=== PATIENT | female | born 1950 | race Caucasian/White ===

== ENCOUNTER 2016-04-18 01:13 | Observation (INO) | payer BC, MEDICARE ==
[2016-04-18 01:29] VITALS: RESP 18
[2016-04-18] MEDS ORDERED: NITROGLYCERIN OINT 1 INCH/GM PACKET TOPICAL STA (01:45)
[2016-04-18] MEDS ORDERED: ASPIRIN 81 MG CHEW PO STA (01:45)
--- NOTE | 2016-04-18 01:47 | ED ---
General Adult HPI - General Chief complaint: Chest Pain Stated complaint: Chest Tightness Time Seen by Provider: 04/18/16 01:40 Source: patient, RN notes reviewed Mode of arrival: ambulatory Limitations: no limitations - History of Present Illness Initial comments: Patient is a pleasant 65-year-old female presenting to emergency departments chest discomfort. Discomfort feels like heaviness. Discomfort has been somewhat progressive over the past month. Discomfort is exertional and usually improves with rest. Symptoms are mild at this time, rated 3/10. Patient does have some associated dyspnea. No nausea or diaphoresis. No history of similar symptoms prior to the past month. - Related Data Home Medications Medication Instructions Recorded Confirmed Venlafaxine HCl 225 mg PO HS 04/18/16 04/18/16 amLODIPine BESYLATE/BENAZEPRIL 1 cap PO DAILY 04/18/16 04/18/16 [amLODIPine BESYLATE/BENAZEPRIL 10-20 mg] lamoTRIgine [LaMICtal] 100 mg PO BID 04/18/16 04/18/16 traZODone HCL 100 mg PO HS 04/18/16 04/18/16 Allergies Allergy/AdvReac Type Severity Reaction Status Date / Time cat dander Allergy Unknown Verified 04/18/16 01:29 codeine Allergy Unknown Verified 04/18/16 01:29 iodine Allergy Unknown Verified 04/18/16 01:29 Review of Systems ROS Statement: Those systems with pertinent positive or pertinent negative responses have been documented in the HPI. ROS Other: All systems not noted in ROS Statement are negative. Constitutional: Denies: fever Eyes: Denies: eye pain ENT: Denies: ear pain Respiratory: Reports: dyspnea. Denies: cough Cardiovascular: Reports: chest pain Endocrine: Denies: fatigue Gastrointestinal: Denies: abdominal pain Genitourinary: Denies: dysuria Musculoskeletal: Denies: arthralgia Skin: Denies: rash Neurological: Denies: weakness Past Medical History Past Medical History: Hypertension Additional Past Medical History / Comment(s): Leprosy History of Any Multi-Drug Resistant Organisms: None Reported Past Surgical History: Section, Cholecystectomy Past Psychological History: Depression Smoking Status: Never smoker Past Alcohol Use History: None Reported Past Drug Use History: None Reported General Exam Limitations: no limitations General appearance: alert, in no apparent distress Head exam: Present: atraumatic Eye exam: Present: normal appearance, PERRL ENT exam: Present: normal oropharynx Neck exam: Present: normal inspection Respiratory exam: Present: normal lung sounds bilaterally Cardiovascular Exam: Present: regular rate, normal rhythm Expanded Peripheral pulses: 2+: Radial (R), Radial (L), Dorsalis Pedis (R), Dorsalis Pedis (L) GI/Abdominal exam: Present: soft. Absent: tenderness Extremities exam: Present: normal inspection. Absent: pedal edema, calf tenderness Neurological exam: Present: alert Psychiatric exam: Present: normal affect, normal mood Skin exam: Absent: rash Course Vital Signs 04/18/16 04/18/16 01:24 02:20 Temperature 97.5 F L Pulse Rate 80 66 Respiratory 18 18 Rate Blood Pressure 177/109 131/83 O2 Sat by Pulse 97 95 Oximetry - Reevaluation(s) Reevaluation #1: 04/18/16 01:46 Recheck blood pressure 168/80 EKG Findings - EKG Comments: EKG Findings:: Normal sinus rhythm 74. Normal intervals. Normal axis. Normal QRS. Normal ST-T. Medical Decision Making - Medical Decision Making Patient reexamined and symptom-free. Patient symptoms have resolved with nitroglycerin. Patient updated on results and plan. Case was discussed in detail with Dr. Moe, who will admit for Dr. Lynch. Admission orders written. Cardiology consult placed. IV heparin started. - Lab Data Result diagrams: 04/18/16 01:27 04/18/16 01:27 Lab Results 04/18/16 04/18/16 04/18/16 Range/Units 01:27 01:27 01:27 WBC 9.6 (3.8-10.6) k/uL RBC 4.80 (3.80-5.40) m/uL Hgb 13.9 (11.4-16.0) gm/dL Hct 43.6 (34.0-46.0) % MCV 90.9 (80.0-100.0) fL MCH 29.0 (25.0-35.0) pg MCHC 32.0 (31.0-37.0) g/dL RDW 13.2 (11.5-15.5) % Plt Count 318 (150-450) k/uL Neutrophils % 57 % Lymphocytes % 29 % Monocytes % 6 % Eosinophils % 5 % Basophils % 2 % Neutrophils # 5.5 (1.3-7.7) k/uL Lymphocytes # 2.8 (1.0-4.8) k/uL Monocytes # 0.6 (0-1.0) k/uL Eosinophils # 0.4 (0-0.7) k/uL Basophils # 0.2 (0-0.2) k/uL PT (9.0-12.0) sec INR (<1.1) APTT (22.0-30.0) sec Sodium 143 (137-145) mmol/L Potassium 4.3 (3.5-5.1) mmol/L Chloride 104 (98-107) mmol/L Carbon Dioxide 26 (22-30) mmol/L Anion Gap 13 mmol/L BUN 16 (7-17) mg/dL Creatinine 0.80 (0.52-1.04) mg/dL Est GFR (MDRD) Af Amer >60 (>60 ml/min/1.73 sqM) Est GFR (MDRD) Non-Af >60 (>60 ml/min/1.73 sqM) Glucose 97 (74-99) mg/dL Calcium 9.6 (8.4-10.2) mg/dL Magnesium 2.1 (1.6-2.3) mg/dL Total Bilirubin 0.3 (0.2-1.3) mg/dL AST 21 (14-36) U/L ALT 35 (9-52) U/L Alkaline Phosphatase 75 (38-126) U/L Total Creatine Kinase 104 (30-135) U/L CK-MB (CK-2) 1.2 (0.0-2.4) ng/mL CK-MB (CK-2) Rel Index 1.2 Troponin I <0.012 (0.000-0.034) ng/mL Total Protein 7.2 (6.3-8.2) g/dL Albumin 4.3 (3.5-5.0) g/dL 04/18/16 Range/Units 01:27 WBC (3.8-10.6) k/uL RBC (3.80-5.40) m/uL Hgb (11.4-16.0) gm/dL Hct (34.0-46.0) % MCV (80.0-100.0) fL MCH (25.0-35.0) pg MCHC (31.0-37.0) g/dL RDW (11.5-15.5) % Plt Count (150-450) k/uL Neutrophils % % Lymphocytes % % Monocytes % % Eosinophils % % Basophils % % Neutrophils # (1.3-7.7) k/uL Lymphocytes # (1.0-4.8) k/uL Monocytes # (0-1.0) k/uL Eosinophils # (0-0.7) k/uL Basophils # (0-0.2) k/uL PT 10.2 (9.0-12.0) sec INR 1.0 (<1.1) APTT 23.6 (22.0-30.0) sec Sodium (137-145) mmol/L Potassium (3.5-5.1) mmol/L Chloride (98-107) mmol/L Carbon Dioxide (22-30) mmol/L Anion Gap mmol/L BUN (7-17) mg/dL Creatinine (0.52-1.04) mg/dL Est GFR (MDRD) Af Amer (>60 ml/min/1.73 sqM) Est GFR (MDRD) Non-Af (>60 ml/min/1.73 sqM) Glucose (74-99) mg/dL Calcium (8.4-10.2) mg/dL Magnesium (1.6-2.3) mg/dL Total Bilirubin (0.2-1.3) mg/dL AST (14-36) U/L ALT (9-52) U/L Alkaline Phosphatase (38-126) U/L Total Creatine Kinase (30-135) U/L CK-MB (CK-2) (0.0-2.4) ng/mL CK-MB (CK-2) Rel Index Troponin I (0.000-0.034) ng/mL Total Protein (6.3-8.2) g/dL Albumin (3.5-5.0) g/dL - Radiology Data Radiology results: image reviewed (Chest x-ray shows no acute process.) Critical Care Time Critical Care Time: Yes Total Critical Care Time: 33 Disposition Clinical Impression: Unstable angina pectoris Disposition: ADMITTED IP TO THIS HOSP
[2016-04-18 02:28] LABS: Basophils # (A) 0.2 k/uL (0-0.2); Basophils % (A) 2 %; CH 29.8; CHCM 32.9; Eosinophils # (A) 0.4 k/uL (0-0.7); Eosinophils % (A) 5 %; HCT 43.6 % (34.0-46.0); HDW 2.49; HGB 13.9 gm/dL (11.4-16.0); Luc # (Auto) 0.18; Luc % (Auto) 2; Lymphocytes # (A) 2.8 k/uL (1.0-4.8); Lymphocytes % (A) 29 %; MCV 90.9 fL (80.0-100.0); Mean Platelet Volume 7.2; Monocytes # (A) 0.6 k/uL (0-1.0); Monocytes % (A) 6 %; Neutrophils # (A) 5.5 k/uL (1.3-7.7); Neutrophils % (A) 57 %; RDW 13.2 % (11.5-15.5); WBC 9.6 k/uL (3.8-10.6); WBC (Perox) 9.57
[2016-04-18 02:45] LABS: ALT 35 U/L (9-52); AST 21 U/L (14-36); Alkaline Phosphatase 75 U/L (38-126); Anion Gap 13 mmol/L; Blood Urea Nitrogen 16 mg/dL (7-17); Calcium 9.6 mg/dL (8.4-10.2); Carbon Dioxide 26 mmol/L (22-30); Chloride 104 mmol/L (98-107); Glucose 97 mg/dL (74-99); Magnesium 2.1 mg/dL (1.6-2.3); Non-African American GFR(MDRD) >60 (>60 ml/min/1.73 sqM); Potassium 4.3 mmol/L (3.5-5.1); Sodium 143 mmol/L (137-145); Total Bilirubin 0.3 mg/dL (0.2-1.3); Total Protein 7.2 g/dL (6.3-8.2)
--- NOTE | 2016-04-18 02:52 | XR ---
EXAMINATION TYPE: XR chest 2V DATE OF EXAM: 04/18/2016 2:34 AM COMPARISON: NONE HISTORY: Chest pain for one month TECHNIQUE: Frontal and lateral views of the chest are obtained. FINDINGS: There is no heart failure nor confluent pneumonic infiltrate. There are no hilar masses. C ostophrenic angles are clear. There are chest leads. Bony thorax is intact. IMPRESSION: No active cardiopulmonary disease.
[2016-04-18 02:53] LABS: Partial Thromboplastin Time 23.6 sec (22.0-30.0); Prothrombin Time 10.2 sec (9.0-12.0)
[2016-04-18 02:54] LABS: Creatine Kinase 104 U/L (30-135)
[2016-04-18 03:06] LABS: Creatine Kinase MB 1.2 ng/mL (0.0-2.4); Troponin I <0.012 ng/mL (0.000-0.034)
[2016-04-18] MEDS ORDERED: NITROGLYCERIN SL TABS 0.4 MG TAB SUBLINGUAL PRN (03:34)
[2016-04-18] MEDS ORDERED: HEPARIN SODIUM,PORCINE 5,000 UNIT/ML 1 ML VIAL IV PRN (03:34)
[2016-04-18] MEDS ORDERED: HEPARIN SODIUM,PORCINE 5,000 UNIT/ML 1 ML VIAL IV ONE (03:34)
[2016-04-18] MEDS ORDERED: HEPARIN SODIUM,PORCINE/D5W PMX 25,000 UNIT in DEXTROSE/WATER 1 500ML.BAG IV SCH (03:45)
[2016-04-18] MEDS ORDERED: ACETAMINOPHEN TAB 325 MG TAB PO STA (03:50)
[2016-04-18 04:43] VITALS: BMI 36.6
[2016-04-18 07:10] LABS: Creatine Kinase 87 U/L (30-135)
[2016-04-18 07:22] LABS: Creatine Kinase MB 1.2 ng/mL (0.0-2.4); Troponin I <0.012 ng/mL (0.000-0.034)
[2016-04-18] MEDS ORDERED: ACETAMINOPHEN TAB 325 MG TAB PO PRN (07:35)
[2016-04-18] MEDS: NITROGLYCERIN OINT 1 INCH/GM PACKET TOPICAL SCH ×2 (08:21→14:05)
[2016-04-18] MEDS ORDERED: LISINOPRIL 20 MG TAB PO SCH (09:00)
[2016-04-18] MEDS ORDERED: lamoTRIgine 100 MG TAB PO SCH (09:00)
[2016-04-18] MEDS ORDERED: amLODIPine 10 MG TAB PO SCH (09:00)
--- NOTE | 2016-04-18 09:17 | P.CRDCN ---
History of Present Illness Consult date: 04/18/16 Chief complaint: Chest pain History of present illness: This is a pleasant 65-year-old female patient with a past medical history significant for hypertension and dyslipidemia and mild obesity presented to the emergency room complaining of chest discomfort. She describes a one-week history of intermittent chest discomfort, as a pressure across the chest, without any radiation to the arm or neck or shoulder and without any associated symptoms of shortness of breath, sweating, dizziness or lightheadedness. The EKG showed sinus rhythm without any significant ST or T-wave abnormalities. The cardiac enzymes came in to be unremarkable. The patient's symptoms seems to be consistent with possible angina in view of the exertional nature of it. I recommended proceeding with heart catheterization but the patient would like to proceed with a stress test. Past Medical History Past Medical History: Hypertension Additional Past Medical History / Comment(s): Leprosy History of Any Multi-Drug Resistant Organisms: MRSA Date of last positivie culture/infection: 2012 MDRO Source:: Neck Past Surgical History: Section, Cholecystectomy Additional Past Surgical History / Comment(s): Tube in left ear Past Anesthesia/Blood Transfusion Reactions: No Reported Reaction Past Psychological History: Depression Smoking Status: Former smoker Past Alcohol Use History: None Reported Past Drug Use History: None Reported - Past Family History Mother Family Medical History: Cancer Additional Family Medical History / Comment(s): Pancreatic CA Father Additional Family Medical History / Comment(s): heart disease-aorta Medications and Allergies Home Medications Medication Instructions Recorded Confirmed Type Aspirin EC [Ecotrin Low Dose] 81 mg PO HS 04/18/16 04/18/16 History Ibuprofen [Motrin] 800 mg PO Q6HR PRN 04/18/16 04/18/16 History Venlafaxine HCl 225 mg PO HS 04/18/16 04/18/16 History amLODIPine BESYLATE/BENAZEPRIL 1 cap PO HS 04/18/16 04/18/16 History [amLODIPine BESYLATE/BENAZEPRIL 10-20 mg] lamoTRIgine [LaMICtal] 100 mg PO BID 04/18/16 04/18/16 History traZODone HCL 100 mg PO HS 04/18/16 04/18/16 History Allergies Allergy/AdvReac Type Severity Reaction Status Date / Time cat dander Allergy Itching Verified 04/18/16 07:59 codeine Allergy Nausea Verified 04/18/16 07:59 iodine Allergy Anaphylaxis Verified 04/18/16 07:59 Physical Exam Vitals: Vital Signs Temp Pulse Pulse Resp BP BP Pulse Ox 04/18/16 08:00 71 18 04/18/16 07:57 97.8 F 71 18 115/60 92 L 04/18/16 04:45 18 04/18/16 04:12 96.9 F L 63 18 126/61 98 04/18/16 04:00 97.7 F 66 16 150/80 95 Intake and Output 04/17/16 04/18/16 04/18/16 22:59 06:59 14:59 Other: # Voids 1 Weight 90.7 kg - Constitutional General appearance: no acute distress - Respiratory Respiratory: bilateral: CTA - Cardiovascular Rhythm: regular Heart sounds: normal: S1, S2 Abnormal Heart Sounds: systolic murmur Results 04/18/16 01:27 04/18/16 01:27 Cardiac Enzymes 04/18/16 Range/Units 06:32 CK-MB (CK-2) 1.2 (0.0-2.4) ng/mL Troponin I <0.012 (0.000-0.034) ng/mL Current Medications Generic Name Dose Route Start Last Admin Trade Name Freq PRN Reason Stop Dose Admin Acetaminophen 650 mg 04/18/16 07:35 Tylenol Tab PO Q6HR PRN Fever and/ or Mild Pain Amlodipine Besylate 10 mg 04/18/16 09:00 Norvasc PO DAILY [facility] Aspirin 325 mg 04/19/16 09:00 Aspirin PO DAILY [facility] Heparin Sodium (Porcine) 0 unit 04/18/16 03:34 Heparin IV Q6HR PRN Low PTT Protocol Heparin Sodium/Dextrose 25,000 500 mls @ 20.13 mls/hr 04/18/16 03:45 04:08 unit/ IV Solution IV 11.1 units/kg/hr .Q24H ESTEE 20.13 mls/hr Protocol Administration 11.1 UNITS/KG/HR Lamotrigine 100 mg 04/18/16 09:00 Lamictal PO BID [facility] Lisinopril 20 mg 04/18/16 09:00 Zestril PO DAILY [facility] Nitroglycerin 1 inch 04/18/16 07:00 04/18/16 08:21 Nitro-Bid Oint TOPICAL Not Given Q6HR ESTEE Nitroglycerin 0.4 mg 04/18/16 03:34 Nitrostat SUBLINGUAL Q5M PRN Chest Pain Sodium Chloride 10 ml 04/18/16 09:00 Saline Flush IV BID ESTEE Trazodone HCl 100 mg 04/18/16 21:00 Desyrel PO HS ESTEE Venlafaxine HCl 225 mg 04/18/16 21:00 Effexor Xr PO HS ESTEE Intake and Output 04/17/16 04/18/16 04/18/16 22:59 06:59 14:59 Other: # Voids 1 Weight 90.7 kg Assessment and Plan Plan: Assessment #1 chest discomfort #2 hypertension #3 dyslipidemia Plan #1 the patient was ruled out for acute coronary event #2 I will scheduled the patient to undergo a stress test.
--- NOTE | 2016-04-18 12:28 | EST ---
DATE OF SERVICE: 04/18/2016 AGE: 65Y SEX: F HT: 5'2" WT: 200 lbs. Protocol Erwin: X Other: Cardiolite Stage: II Dur. of Exercise: 6 minutes *Heart Rate Blood Pressure *Rest: 65 Rest: 139/62 * *Max. Achieved: 130 Maximum BP: 205/70 85% PMHR: 131 100% PMHR: 154 *METS: 7.3 INDICATIONS: Chest pain. MEDICATIONS: CLINICAL INFORMATION: History of chest pain, hypertension, shortness of breath, hypercholesterolemia, family history of coronary artery disease, history of angina, quit smoking in 1974. She smoked for about 5 years. History of asthma. Resting ECG shows sinus rhythm 65 beats per minute, ID interval of 0.16, QRS 0.08, normal ST-T waves. Utilizing a standard Erwin protocol, a symptom-limited treadmill test was performed. Patient exercised for total of 6 minutes, attained a peak heart rate performed in 130 beats per minute, which is approximately 84% predicted maximum heart rate without any chest pain or pressure or ST segment deviations indicative of ischemia. IMPRESSION: 1. Baseline rhythm is sinus with normal ID interval, normal QRS, normal ST-T waves. 2. Negative stress Cardiolite study at 84% predicted maximum heart rate. 3. Nuclear scintigrams to follow from radiology department.
[2016-04-18 12:45] VITALS: BP 165/85; PULSE 82; TEMP 97.9
[2016-04-18 14:02] LABS: Creatine Kinase 90 U/L (30-135)
--- NOTE | 2016-04-18 14:12 | NM ---
EXAMINATION TYPE: NM stress cardiolite complete DATE OF EXAM: 04/18/2016 12:38 PM COMPARISON: Chest x-ray 18 April 2016 HISTORY: Chest pain TECHNIQUE: After the intravenous administration of 11 mCi Tc 99m Sestamibi - Rest images obtained 50 minutes post injection. The patient exercised using a DAV protocol and 1 minute prior to peak ex ercise was injected with 26.8 mCi Tc 99m Sestamibi - Stress images obtained 15 minutes post injection . FINDINGS: Targeted heart rate was not achieved during performance of the study, patient achieved 83% of predict ed maximal heart rate. Review of stress and rest SPECT images demonstrates no distinct perfusion abno rmality. Gated analysis shows normal wall motion with an estimated left ventricular ejection fractio n of 85 %. IMPRESSION: No scintigraphic evidence for reversible ischemia. Suboptimal stress. Elevated ejection fraction, con director insurance echocardiographic correlation.
[2016-04-18 14:14] LABS: Creatine Kinase MB 1.1 ng/mL (0.0-2.4); Troponin I <0.012 ng/mL (0.000-0.034)
--- NOTE | 2016-04-18 15:31 | P.HPIM ---
History of Present Illness H&P Date: 04/18/16 Chief Complaint: Chest pain This is a medical H&P and discharge summary combined: Patient is a 65-year-old female, patient of Dr. Lynch in the outpatient setting with medical history significant for hypertension, leprosy, MRSA of the neck in 2012, depression, and former nicotine dependence. Patient presented to the emergency department with complaints of chest discomfort for approximately one month described as heaviness with associated dyspnea.. Chest discomfort worsens with activity and improves with rest. No history of nausea or diaphoresis. EKG in the emergency department showed normal sinus rhythm with no ST-T abnormality. Chest x-ray negative for any acute cardiopulmonary process. Troponins negative 3. Patient was seen and evaluated by cardiology who recommended a heart catheterization which patient declined. Patient underwent a Cardiolite stress test which was negative. Patient had no further episodes of chest pain during her hospital stay and was deemed stable from a medical standpoint for discharge to home with follow-up in the outpatient setting. Past Medical History Past Medical History: Hypertension Additional Past Medical History / Comment(s): Leprosy History of Any Multi-Drug Resistant Organisms: MRSA Date of last positivie culture/infection: 2012 MDRO Source:: Neck Past Surgical History: Section, Cholecystectomy Additional Past Surgical History / Comment(s): Tube in left ear Past Anesthesia/Blood Transfusion Reactions: No Reported Reaction Past Psychological History: Depression Smoking Status: Former smoker Past Alcohol Use History: None Reported Past Drug Use History: None Reported - Past Family History Mother Family Medical History: Cancer Additional Family Medical History / Comment(s): Pancreatic CA Father Additional Family Medical History / Comment(s): heart disease-aorta Medications and Allergies Home Medications Medication Instructions Recorded Confirmed Type Aspirin EC [Ecotrin Low Dose] 81 mg PO HS 04/18/16 04/18/16 History Ibuprofen [Motrin] 800 mg PO Q6HR PRN 04/18/16 04/18/16 History Venlafaxine HCl 225 mg PO HS 04/18/16 04/18/16 History amLODIPine BESYLATE/BENAZEPRIL 1 cap PO HS 04/18/16 04/18/16 History [amLODIPine BESYLATE/BENAZEPRIL 10-20 mg] lamoTRIgine [LaMICtal] 100 mg PO BID 04/18/16 04/18/16 History traZODone HCL 100 mg PO HS 04/18/16 04/18/16 History Allergies Allergy/AdvReac Type Severity Reaction Status Date / Time cat dander Allergy Itching Verified 04/18/16 07:59 codeine Allergy Nausea Verified 04/18/16 07:59 iodine Allergy Anaphylaxis Verified 04/18/16 07:59 Physical Exam Vitals: Vital Signs Temp Pulse Pulse Resp BP BP Pulse Ox 04/18/16 12:00 97.9 F 82 18 165/85 93 L 04/18/16 08:00 71 18 04/18/16 07:57 97.8 F 71 18 115/60 92 L 04/18/16 04:45 18 04/18/16 04:12 96.9 F L 63 18 126/61 98 04/18/16 04:00 97.7 F 66 16 150/80 95 Intake and Output 04/18/16 04/18/16 04/18/16 06:59 14:59 22:59 Other: # Voids 1 2 Weight 90.7 kg GENERAL: Pt awake and alert, well-appearing, well-nourished, and in no acute distress. HEAD: Atraumatic, normocephalic. EYES: Pupils equal and round. ENT: Moist mucous membranes. NECK:Supple without lymphadenopathy or JVD. LUNGS: Breath sounds clear to auscultation bilaterally. No wheezes, rales, or rhonchi. HEART: Heart S1, S2, no S3 or S4. Regular rate and rhythm. No murmurs, rubs or gallops. ABDOMEN: Soft, morbidly obese, nontender, nondistended, normoactive bowel sounds. EXTREMITIES: 2+ peripheral pulses. No edema. No calf tenderness. NEUROLOGICAL: Pt oriented x 3. Cranial nerves II through XII grossly intact. Strength and sensation grossly intact. PSYCH: Normal mood, normal affect. SKIN: Warm, dry, intact. Normal turgor. No rashes or lesions. Results CBC & Chem 7: 04/18/16 01:27 04/18/16 01:27 Chest x-ray: report reviewed Thrombosis Risk Factor Assmnt - Choose All That Apply Each Risk Factor Represents 2 Points: Age 61-74 years Thrombosis Risk Factor Assessment Total Risk Factor Score: 2 Thrombosis Risk Factor Assessment Level: Low Risk Assessment and Plan Plan: Impression and plan and discharge diagnoses: 1. Atypical chest pain, stress test negative. 2. Hypertension. 3. Dyslipidemia. 4. History of leprosy. 5. Depression, stable. 6. History of nicotine dependence. The above impression and plan have been discussed and directed by Dr. Kennedy. Katya GUEVARA acting as scribe for Dr. Kennedy.
[2016-04-18] MEDS ORDERED: VENLAFAXINE HCL ER 75 MG CAP PO SCH (21:00)
[2016-04-18] MEDS ORDERED: traZODone HCL 50 MG TAB PO SCH (21:00)
[2016-04-19] MEDS ORDERED: ASPIRIN 325 MG TAB PO SCH (09:00)
== END 2016-04-18 15:40 | disposition home or self-care (01) ==
LOC: EC 01:13 → 3OBS 03:34
PROVIDERS: ADMIT Family Medicine; ATTEND Family Medicine
DX: R07.89 Other chest pain (principal); I10 Essential (primary) hypertension; F32.9 Major depressive disorder, single episode, unspecified; Z87.891 Personal history of nicotine dependence; Z79.899 Other long term (current) drug therapy; Z88.5 Allergy status to narcotic agent; Z88.8 Allergy status to other drugs, medicaments and biological substances
CPT/HCPCS: 36415; 93005; 93017; 80053; 82550; 82553; 83735; 84484; 85025; 85610; 85730; 71020; 78452; 96376; 99291; G0378; A9500; J1644 ×2; 96366

== ENCOUNTER → 2018-02-02 | Outpatient (CLI) | payer MEDICARE ==
--- NOTE | 2018-02-04 11:25 | MM ---
Reason for exam: screening (asymptomatic). Last mammogram was performed 9 years and 4 months ago. History: Patient is postmenopausal and had first child at age 31. Family history of breast cancer in cousin at age 65. Physical Findings: A clinical breast exam by your physician is recommended on an annual basis and results should be correlated with mammographic findings. MG 3D Screening Mammo W/Cad Bilateral CC and MLO view(s) were taken. Prior study comparison: September 21, 2008, bilateral digital screening mammogram. There are scattered fibroglandular densities. Nodule upper outer left breast 6.9cm from nipple. This finding is changed when compared with previous exams. ASSESSMENT: Incomplete: need additional imaging evaluation, BI-RAD 0 RECOMMENDATION: Special view mammogram of the left breast. If lesion persists on supplemental views, image directed ultrasound is recommended. [facility] will attempt to contact patient to return for supplemental views and ultrasound if indicated.
== END | disposition home or self-care (01) ==
LOC: RADMAMWWP 15:08
PROVIDERS: ATTEND Family Medicine
DX: Z12.31 Encounter for screening mammogram for malignant neoplasm of breast (principal)
CPT/HCPCS: 77063; 77067

== ENCOUNTER → 2018-02-08 | Outpatient (CLI) | payer MEDICARE ==
--- NOTE | 2018-02-19 13:35 | MM ---
Reason for exam: additional evaluation requested from abnormal screening. Last mammogram was performed less than 1 month ago. History: Patient is postmenopausal and had first child at age 31. Family history of breast cancer in cousin at age 65. Physical Findings: Nurse did not find any significant physical abnormalities on exam. MG 3D Work Up W/Cad LT Spot compression CC, spot compression MLO, and ML view(s) were taken of the left breast. Prior study comparison: February 02, 2018, bilateral MG 3d screening mammo w/cad. February 03, 2013, mammogram. September 21, 2008, bilateral digital screening mammogram. There are scattered fibroglandular densities. Finding: There is a 6 mm circumscribed lobulated mass located 6-7 cm from the nipple in the 12 o'clock upper quadrant, middle position of the left breast. New finding since February 03, 2013 and February 02, 2018. These results were verbally communicated with the patient and result sheet given to the patient on 02/19/18. ASSESSMENT: Incomplete: need additional imaging evaluation, BI-RAD 0 RECOMMENDATION: Ultrasound of the left breast.
--- NOTE | 2018-02-19 13:37 | USB ---
Reason for exam: additional evaluation requested from abnormal screening. History: Patient is postmenopausal and had first child at age 31. Family history of breast cancer in cousin at age 65. US Breast Workup Limited LT Left limited breast ultrasound including focal area of concern, retroareolar and axilla demonstrates a 4 x 3 x 4mm oval, hypoechoic lesion at 3 o'clock. These results were verbally communicated with the patient and result sheet given to the patient on 02/19/18. ASSESSMENT: Suspicious, BI-RAD 4 RECOMMENDATION: Stereotactic core biopsy of the left breast. (mammographic lesion 12 o'clock does not correlate with ultrasound) Called Dr. Lynch with mammographic findings and has scheduled an appointment for the patient for 03/18/18 at 9:[address] Sterling. Biopsy scheduled for 03/05/18 at 10:20. PRELIMINARY REPORT CALLED AND FAXED TO DR. STERLING ON 02/19/18.
== END | disposition home or self-care (01) ==
LOC: RADMAMWWP 12:49
PROVIDERS: ATTEND Family Medicine
DX: R92.8 Other abnormal and inconclusive findings on diagnostic imaging of breast (principal)
CPT/HCPCS: 77065; 76642; G0279; 77061

== ENCOUNTER → 2018-03-05 | Day surgery (SDC) | payer MEDICARE ==
[2018-03-05 10:11] VITALS: BP 155/76; PULSE 97; RESP 16; TEMP 98.3; BMI 34.7
--- NOTE | 2018-03-05 11:25 | MM ---
Stereotactic Mammotome core biopsy left breast. HISTORY: Density left breast The density in question within the left breast were targeted by the undersigned. Procedure was performed by the undersigned. Informed consent was obtained and all of the patients questions were answered. The standard sterile technique was utilized and appropriate local anesthesia was obtained with 1% lidocaine. 1% lidocaine with epinephrine was also utilized and deep anesthesia. Mammotome probe was advanced and multiple core samples were obtained and sent to pathology for interpretation. Microclip marker was deployed at the site of biopsy. Post procedural mammogram demonstrates appropriate deployment of radiopaque clip marker. The patient tolerated the procedure well and left the department in stable condition. Pathology results are pending. IMPRESSION: Successful stereotactic core biopsy left breast with pathology results pending. Pathology Results: Benign LEFT BREAST, STEREOTACTIC CORE BIOPSY: Fibrocystic changes including cysts, apocrine metaplasia, fibrosis and columnar cell change. Recommendation Follow up mammogram of the left breast in 6 months. BARTOLOME
== END ==
LOC: RADMAMWWP 09:32
PROVIDERS: ATTEND Surgery
DX: R92.8 Other abnormal and inconclusive findings on diagnostic imaging of breast (principal); N60.12 Diffuse cystic mastopathy of left breast
CPT/HCPCS: 88305; 19081; A4648; J2001

== ENCOUNTER → 2018-08-06 | Outpatient (CLI) | payer MEDICARE ==
--- NOTE | 2018-08-06 10:29 | MM ---
Reason for exam: follow-up at short interval from prior study. Last mammogram was performed 6 months ago. History: Patient is postmenopausal and had first child at age 31. Family history of breast cancer in cousin at age 65. Benign MG stereo VAD BX LT of the left breast, March 05, 2018. Physical Findings: Nurse did not find any significant physical abnormalities on exam. MG 3D Diag Mammo W/Cad LT CC and MLO view(s) were taken of the left breast. Prior study comparison: February 08, 2018, left breast MG 3d work up w/cad LT. February 02, 2018, bilateral MG 3d screening mammo w/cad. There are scattered fibroglandular densities. Previous mammotome biopsy in the left breast. There is no discrete abnormality. No significant new findings when compared with previous films. These results were verbally communicated with the patient and result sheet given to the patient on 08/06/18. ASSESSMENT: Benign, BI-RAD 2 RECOMMENDATION: Return to routine screening mammogram schedule for both breasts. Back on schedule.
== END ==
LOC: RADMAMWWP 09:41
PROVIDERS: ATTEND Surgery
DX: R92.8 Other abnormal and inconclusive findings on diagnostic imaging of breast (principal)
CPT/HCPCS: 77065; G0279; 77061

== ENCOUNTER → 2020-01-13 | Outpatient (CLI) | payer MEDICARE ==
--- NOTE | 2020-01-13 19:00 | ECHOF ---
Referral Reason:R01.1 cardiac murmur MEASUREMENTS -------- HEIGHT: 157.5 cm WEIGHT: 90.7 kg BP: RVIDd: 3.4 cm (< 3.3) IVSd: 1.3 cm (0.6 - 1.1) LVIDd: 4.2 cm (3.9 - 5.3) LVPWd: 1.2 cm (0.6 - 1.1) IVSs: 1.9 cm LVIDs: 1.9 cm LVPWs: 1.8 cm LAESV Index (A-L): 35.65 ml/m Ao Diam: 2.5 cm (2.0 - 3.7) AV Cusp: 2.0 cm (1.5 - 2.6) MV EXCURSION: 16.721 mm (> 18.000) MV EF SLOPE: 58 mm/s (70 - 150) EPSS: 0.5 cm MV E Frank: 0.88 m/s MV DecT: 216 ms MV A Frank: 1.07 m/s MV E/A Ratio: 0.82 RAP: 5.00 mmHg RVSP: 37.18 mmHg FINDINGS -------- Sinus rhythm. This was a technically adequate study. The left ventricular size is normal. There is severe concentric left ventricular hypertrophy. Ove rall left ventricular systolic function is normal with, an EF between 55 - 60 %. The right ventricle is mildly enlarged. LA is moderately dilated 34-39 ml/m2 The right atrial size is normal. Interatrial and interventricular septum intact. The aortic valve is trileaflet and appears structurally normal. There is no evidence of aortic regu rgitation. There is no evidence of aortic stenosis. There is trace mitral regurgitation. Mild tricuspid regurgitation present. There is mild pulmonary hypertension. The right ventricular systolic pressure, as measured by Doppler, is 37.18mmHg. There is no pulmonic regurgitation present. The aortic root size is normal. Normal inferior vena cava with normal inspiratory collapse consistent with estimated right atrial pre ssure of 5 mmHg. There is no pericardial effusion. CONCLUSIONS -------- 1. The right ventricle is mildly enlarged. 2. LA is moderately dilated 34-39 ml/m2 3. There is trace mitral regurgitation. 4. Mild tricuspid regurgitation present. 5. There is mild pulmonary hypertension. 6. The right ventricular systolic pressure, as measured by Doppler, is 37.18mmHg. CLINICAL PHLEBOTOMIST: Ariana Palomino RDCS
== END | disposition home or self-care (01) ==
LOC: RADECHMAIN 13:42
PROVIDERS: ATTEND Family Medicine
DX: I07.1 Rheumatic tricuspid insufficiency (principal); I27.20 Pulmonary hypertension, unspecified; Z88.5 Allergy status to narcotic agent
CPT/HCPCS: 93306

== ENCOUNTER → 2020-01-25 | Outpatient (CLI) | payer MEDICARE ==
--- NOTE | 2020-01-25 14:05 | US ---
EXAMINATION TYPE: US pelvic complete DATE OF EXAM: 01/25/2020 COMPARISON: NONE CLINICAL HISTORY: Z82.49 Aortic Aneurysm. No pelvic symptoms TECHNIQUE: TA. Transabdominal sonographic images of the pelvis were acquired. Date of LMP: 20 years ago EXAM MEASUREMENTS: Uterus: 8.1 x 2.2 x 2.9 cm Endometrial Stripe: 0.2 cm Right Ovary: not seen Left Ovary: not seen *limited imaging due to bowel gas and bladder not fully distended. 1. Uterus: Anteverted wnl 2. Endometrium: wnl 3. Right Ovary: not seen due to bowel gas and or atrophy 4. Left Ovary: not seen due to bowel gas and or atrophy 5. Bilateral Adnexa: wnl 6. Posterior cul-de-sac: wnl IMPRESSION: 1. Nonvisualization of the bilateral ovaries. 2. Unremarkable transabdominal appearance of the uterus. 3. No free fluid.
--- NOTE | 2020-01-25 14:29 | US ---
EXAMINATION TYPE: US abdomen complete DATE OF EXAM: 01/25/2020 COMPARISON: Abdominal ultrasound 11/15/2013. CLINICAL HISTORY: Z82.49 Aortic Aneurysm. Father and brother have AAA, no symptoms, cholecystectomy EXAM MEASUREMENTS: Liver Length: 14.2 cm Gallbladder Wall: Surgically absent CBD: 0.7 cm Spleen: 9.5 cm Right Kidney: 10.9 x 4.8 x 4.9 cm Left Kidney: 10.2 x 4.5 x 5.6 cm Pancreas: wnl Liver: wnl Gallbladder: Surgically absent Phd Intern reports negative sonographic Cherry's sign CBD: wnl Spleen: wnl Right Kidney: wnl Left Kidney: wnl Upper IVC: wnl Abd Aorta: wnl IMPRESSION: 1. No abdominal aortic aneurysm. 2. No acute abdominal process.
== END | disposition home or self-care (01) ==
LOC: RADUSWWP 08:08
PROVIDERS: ATTEND Family Medicine
DX: Z13.6 Encounter for screening for cardiovascular disorders (principal); Z82.49 Family history of ischemic heart disease and other diseases of the circulatory system; Z88.5 Allergy status to narcotic agent; Z88.2 Allergy status to sulfonamides; Z88.3 Allergy status to other anti-infective agents
CPT/HCPCS: 76700; 76856

== ENCOUNTER → 2021-03-21 | Outpatient (CLI) | payer MEDICARE ==
--- NOTE | 2021-03-22 12:39 | MM ---
Reason for exam: screening (asymptomatic). Last mammogram was performed 2 years and 7 months ago. History: Patient is postmenopausal and had first child at age 31. Family history of breast cancer in cousin at age 65. Benign MG stereo VAD BX LT of the left breast, March 05, 2018. Physical Findings: A clinical breast exam by your physician is recommended on an annual basis and results should be correlated with mammographic findings. MG 3D Screening Mammo W/Cad Bilateral CC and MLO view(s) were taken. Prior study comparison: August 06, 2018, left breast MG 3d diag mammo w/cad LT. February 08, 2018, left breast MG 3d work up w/cad LT. February 02, 2018, bilateral MG 3d screening mammo w/cad. There are scattered fibroglandular densities. There are benign appearing round calcifications bilaterally. Previous mammotome biopsy in the left breast. There is no discrete abnormality. ASSESSMENT: Benign, BI-RAD 2 RECOMMENDATION: Routine screening mammogram of both breasts in 1 year.
== END ==
LOC: RADMAMWWP 16:11
PROVIDERS: ATTEND Family Medicine
DX: Z12.31 Encounter for screening mammogram for malignant neoplasm of breast (principal); Z80.3 Family history of malignant neoplasm of breast; Z78.0 Asymptomatic menopausal state
CPT/HCPCS: 77063; 77067

== ENCOUNTER → 2024-07-21 | Outpatient (CLI) | payer MEDICARE ==
--- NOTE | 2024-07-22 19:03 | BD ---
EXAMINATION TYPE: Axial Bone Density DATE OF EXAM: 07/21/2024 CLINICAL HISTORY: 73 years old Female. ICD-10 CODE: N95.1 MENOPAUSAL AND FEMALE CLIMACTERIC STATES , Additional History: Height: 62 Weight: 197.8 FRAX RISK QUESTIONS: Alcohol (3 or more units per day): no Family History (Parent hip fracture): no Glucocorticoids (More than 3mos): no (Ex: prednisone, prednisolone, methylprednisolone, dexamethasone, and hydrocortisone). History of Fracture in Adulthood: yes Secondary Osteoporosis: 1. Type 1 Diabetes: no 2. Hyperthyroidism: no 3. Menopause before 45: no 4. Malnutrition: no 5. Chronic liver disease: no Rheumatoid Arthritis: no Current Tobacco Use: no RISK FACTORS HISTORY OF: Surgery to Spine/Hip(right/left)/Wrist (right/left): no EXAM MEASUREMENTS: Bone mineral densitometry was performed using the [employer] System. Bone mineral density as measured about the Lumbar spine is: ----- L1-L4(G/cm2): 1.109 T Score Values are as follows: ----- L1: -1.0 ----- L2: -0.6 ----- L3: 0.2 ----- L4: -1.1 ----- L1-L4: -0.6 Z Score Values are as follows: ----- L1: -0.1 ----- L2: 0.3 ----- L3: 1.1 ----- L4: -0.2 ----- L1-L4: 0.3 Bone mineral density : baseline Bone mineral density about the R hip (g/cm2): 0.940 Bone mineral density about the L hip (g/cm2): 0.864 T Score values are as follows: -----R Neck: -1.63 -----L Neck: -1.9 -----R Total: -0.5 -----L Total: -1.1 Z Score values are as follows: -----R Neck: -0.2 -----L Neck: -0.6 -----R Total: 0.6 -----L Total: 0.0 Bone mineral density : baseline FRAX%s: The graph provided illustrates a 17.7% chance for a major osteoporotic fx and a 3.9% chance f or the hips probability for fx in 10 years time. IMPRESSION: Osteopenia (T Score between -2.5 and -1). There is slightly increased risk of fracture and the patient may be considered for treatment. Re-Screen 2-5 years. NOTE: T-SCORE=SD OF THE YOUNG ADULT MEAN. [facility], Workstation: [facility], 07/22/2024 7:00 PM
== END | disposition home or self-care (01) ==
LOC: RADBDWWP 15:51
PROVIDERS: ATTEND Family Medicine
DX: M81.0 Age-related osteoporosis without current pathological fracture (principal); M85.89 Other specified disorders of bone density and structure, multiple sites; N95.1 Menopausal and female climacteric states
CPT/HCPCS: 77080

== ENCOUNTER → 2024-09-30 | Outpatient (CLI) | payer MEDICARE ==
--- NOTE | 2024-09-30 14:20 | MM ---
Reason for Exam: Screening (asymptomatic). Last mammogram was performed 3 year(s) and 6 month(s) ago. Patient History: Menarche at age 10. First Full-Term at age 31. Late child-bearing (after 30). Postmenopausal. 03/05/2018, Benign Core Biopsy on the left side. Maternal cousin had breast cancer, age 65. Risk Values: Pricilla 5 year model risk: 3.2%. NCI Lifetime model risk: 6.8%. Prior Study Comparison: 02/08/2018 Left Diagnostic Mammogram, [facility]. 08/06/2018 Left Diagnostic Mammogram, [facility]. 03/21/2021 Bilateral Screening Mammogram, [facility]. Tissue Density: There are scattered areas of fibroglandular density. Findings: Analyzed By CAD. Left breast biopsy clip. Right breast: There is no suspicious group of microcalcifications or new suspicious mass. Left breast: There is no suspicious group of microcalcifications or new suspicious mass. Overall Assessment: Negative, BI-RAD 1 Management: Screening Mammogram of both breasts in [address] [facility] will attempt to contact patient to return for supplemental views and ultrasound if indicated. Patient should continue monthly self-breast exams. A clinical breast exam by your physician is recommended on an annual basis. This exam should not preclude additional follow-up of suspicious palpable abnormalities. Note on Pricilla scores and lifetime risk: 1. A Pricilla score greater than 3% is considered moderate risk. If this is the case, consider specialist referral to assess eligibility for a risk reducing agent. 2. If overall lifetime risk for the development of breast cancer is 20% or higher, the patient may qualify for future screening with alternating mammogram and breast MRI. [facility], , 09/30/2024 2:16 PM. Electronically signed and approved by: Saeed Carrillo DO
== END | disposition home or self-care (01) ==
LOC: RADMAMWWP 13:44
PROVIDERS: ATTEND Family Medicine
DX: Z12.31 Encounter for screening mammogram for malignant neoplasm of breast (principal); R92.323 Mammographic fibroglandular density, bilateral breasts; Z78.0 Asymptomatic menopausal state; Z80.3 Family history of malignant neoplasm of breast
CPT/HCPCS: 77063; 77067